=== PATIENT | female | born 1995 | race Caucasian/White ===

== ENCOUNTER 2016-12-19 23:46 | Emergency (ER) | payer MEDICAID ==
[~2016-12-19] VITALS: Ht 170.2 cm; Wt 77.1 kg
[~2016-12-19 23:46] MED LIST: ALBU0.63; WELLBUTRIN
[2016-12-20 00:26] LABS: Basophils # (auto) 0.1 uL; Basophils % (auto) 1.3 % (0.0-2.0); Eosinophils # (auto) 0.6 uL; Eosinophils % (auto) 5.7 % (0.0-7.0); Hematocrit 43.9 % (36.0-46.0); Hemoglobin 14.5 g/dL (12.2-16.2); Lymphocytes # (auto) 1.4 uL; Lymphocytes % (auto) 14.5 % (10.0-50.0); Mean Corpuscular Hemoglobin 29.1 pg (28.0-32.0); Mean Corpuscular Hgb Conc. 33.1 g/dL (32.0-36.0); Mean Corpuscular Volume 87.9 fL (80.0-100.0); Mean Platelet Volume 7.9 fL (7.4-10.4); Monocytes % (auto) 10.8 % (0.0-12.0); Neutrophils # (auto) 6.5 uL; Neutrophils % (auto) 67.7 % (37.0-80.0); Platelet Count (auto) 272 10^3/uL (140-450); White Blood Cell 9.6 10^3/uL (4.4-10.8)
[2016-12-20 00:55] LABS: Albumin 3.6 g/dL (3.4-5.0); Calcium 8.6 mg/dL (8.5-10.1); Potassium 3.6 mmol/L (3.5-5.1)
[2016-12-20 00:57] LABS: BUN/Creatinine Ratio 15.7
[2016-12-20 01:09] LABS: Bilirubin, Total 0.3 mg/dL (0.2-1.0); Total Protein 7.5 g/dL (6.4-8.2)
[2016-12-20] MEDS ORDERED: SODIUM CHLORIDE 0.9% 1,000 ML IV ONE (01:15)
[2016-12-20] MEDS ORDERED: IPRATROPIUM BROM 0.5 MG/2.5ML INH SOL NEB ONE (01:15)
[2016-12-20] MEDS ORDERED: ALBUTEROL SULF 2.5 MG/0.5ML(0.5%) NEB SOLN NEB ONE (01:15)
[2016-12-20] MEDS ORDERED: methylPREDNISolone SOD SUCC 125 MG/2 ML VL IV ONE (01:15)
[2016-12-20 04:28] VITALS: BP 111/62
== END 2016-12-20 04:41 | disposition home or self-care (01) ==
LOC: ER 23:46
DX: J45.901 Unspecified asthma with (acute) exacerbation (principal); F17.210 Nicotine dependence, cigarettes, uncomplicated; F15.10 Other stimulant abuse, uncomplicated; F12.10 Cannabis abuse, uncomplicated
CPT/HCPCS: 36415; 71010; 80053; 85025; 93005; 94640; 96361; 96374; 99285; J2930; J7030; 94644

== ENCOUNTER 2018-09-13 11:57 | Inpatient (IN) | payer MEDICAID ==
[~2018-09-13] VITALS: Ht 172.7 cm; Wt 108.2 kg
[2018-09-13 14:05] LABS: Basophils # (auto) 0.1 uL; Eosinophils # (auto) 0.1 uL; Red Cell Distribution Width 16.1 % (11.8-14.3)
[2018-09-13 14:07] LABS: Basophils % (auto) 0.6 % (0.0-2.0); Eosinophils % (auto) 0.8 % (0.0-7.0); Hemoglobin 15.2 g/dL (12.2-16.2); Lymphocytes # (auto) 1.3 uL; Lymphocytes % (auto) 8.6 % (10.0-50.0); Mean Corpuscular Hemoglobin 27.4 pg (28.0-32.0); Mean Corpuscular Hgb Conc. 33.7 g/dL (32.0-36.0); Mean Corpuscular Volume 81.3 fL (80.0-100.0); Monocytes # (auto) 0.7 uL; Monocytes % (auto) 4.3 % (0.0-12.0); Neutrophils # (auto) 13.5 uL; Neutrophils % (auto) 85.7 % (37.0-80.0); Platelet Count (auto) 390 10^3/uL (140-450); Red Blood Cells 5.54 10^6/uL (4.0-5.20); White Blood Cell 15.7 10^3/uL (4.4-10.8)
[2018-09-13 14:22] LABS: BUN/Creatinine Ratio 21.6; Calcium 9.2 mg/dL (8.5-10.1); Magnesium 1.8 mg/dL (1.6-2.6); Potassium 3.3 mmol/L (3.5-5.1)
[2018-09-13 14:25] LABS: Bilirubin, Total 0.4 mg/dL (0.2-1.0); Total Protein 8.7 g/dL (6.4-8.2)
[2018-09-13 14:28] LABS: Urine Amorphous Crystal FEW /hpf (None Seen); Urine Bacteria NONE SEEN /hpf (None Seen); Urine Blood Negative /uL (Negative); Urine Specific Gravity 1.022 (1.001-1.035); Urine WBC <1 /hpf (0 - 5)
[2018-09-13] MEDS ORDERED: SODIUM CHLORIDE 0.9% 1,000 ML IVB ONE (15:35)
[2018-09-13] MEDS ORDERED: ONDANSETRON HCL 4 MG/2 ML VIAL IV ONE (15:45)
[2018-09-13] MEDS ORDERED: KETOROLAC TROMETH 30 MG/ML 1ML VIAL IV ONE (15:45)
[2018-09-13] MEDS ORDERED: cefTRIAXone 1GM/50ML D5W 50 ML IV ONE (18:30)
[2018-09-13] MEDS ORDERED: TEMAZEPAM 15 MG CAP PO PRN (18:30)
[2018-09-13] MEDS ORDERED: NITROGLYCERIN 0.4 MG SL TAB SL PRN (18:30)
[2018-09-13] MEDS ORDERED: PROMETHAZINE HCL 25 MG/ML 1ML IV PRN (18:30)
[2018-09-13] MEDS ORDERED: ACETAMINOPHEN 500 MG TAB PO PRN (18:30)
[2018-09-13] MEDS ORDERED: MORPHINE SULFATE 4 MG/ML SYR/VIAL IV PRN ×2 (18:30)
[2018-09-13] MEDS ORDERED: traMADol HCL 50 MG TAB PO PRN (18:30)
[2018-09-13] MEDS ORDERED: LORazepam 0.5 MG TAB PO PRN (18:30)
[2018-09-13] MEDS ORDERED: ALBUTEROL SULF 2.5 MG/0.5ML(0.5%) NEB SOLN NEB PRN (19:45)
[2018-09-13] MEDS ORDERED: OSELTAMIVIR 75 MG CAP PO ONE (19:45)
[2018-09-13] MEDS: methylPREDNISolone SOD SUCC 40 MG/ML VL IV SCH (20:21)
[2018-09-13] MEDS: FAMOTIDINE (10MG/ML) 2ML VL IV SCH (20:22)
[2018-09-13] MEDS: metroNIDAZOLE 500MG/100ML 100 ML IV SCH (20:22)
[2018-09-13] MEDS ORDERED: OSELTAMIVIR 75 MG CAP PO SCH (22:00)
[2018-09-13] MEDS: SODIUM CHLORIDE 0.9% 1,000 ML IV SCH (22:00)
[2018-09-14] VITALS: BP 131/87
--- NOTE | 2018-09-14 | NUR ---
Telemetry admit from ER MALGORZATA MARTINEZ admitted to Telemetry unit after SBAR received. Patient oriented to Vivian Robins, primary RN, unit, room, bed, and unit policies regarding patient care and visiting hours. Patient now on continuous telemetry monitoring, tele box #20 and telemetry reading on arrival to unit is NSR @99BPM. Patient weighed by bed scale and encouraged to call if they need something. All questions and concerns addressed, patient verbalized understanding. Note: Patient is awake and alert x4, ambulating independently. Right EJ noted, sight is benign, saline flushed.
[2018-09-14] MEDS: ALBUTEROL SULF 2.5 MG/0.5ML(0.5%) NEB SOLN NEB SCH ×4 (00:29→18:37)
[2018-09-14] MEDS: metroNIDAZOLE 500MG/100ML 100 ML IV SCH ×4 (00:30→18:04)
[2018-09-14] MEDS ORDERED: ALBUAER3 IN (00:31)
[2018-09-14] MEDS: SODIUM CHLORIDE 0.9% 1,000 ML IV SCH ×2 (04:22→14:22)
[2018-09-14 05:11] VITALS: BP 124/56
[2018-09-14] MEDS ORDERED: INFLUENZA QUAD 2018-2019 0.5 ML SYRG IM ONE (06:00)
[2018-09-14] MEDS: FAMOTIDINE (10MG/ML) 2ML VL IV SCH ×2 (06:09→18:04)
[2018-09-14] MEDS: methylPREDNISolone SOD SUCC 40 MG/ML VL IV SCH ×2 (07:08→21:18)
[2018-09-14 07:33] LABS: Basophils # (auto) 0 uL; Basophils % (auto) 0.2 % (0.0-2.0); Eosinophils # (auto) 0 uL; Hematocrit 39.7 % (36.0-46.0); Hemoglobin 13.3 g/dL (12.2-16.2); Lymphocytes # (auto) 1.1 uL; Lymphocytes % (auto) 6.1 % (10.0-50.0); Mean Corpuscular Hemoglobin 27.6 pg (28.0-32.0); Mean Corpuscular Hgb Conc. 33.5 g/dL (32.0-36.0); Mean Corpuscular Volume 82.4 fL (80.0-100.0); Monocytes # (auto) 0.6 uL; Monocytes % (auto) 3.5 % (0.0-12.0); Neutrophils # (auto) 16.5 uL; Neutrophils % (auto) 90.2 % (37.0-80.0); Platelet Count (auto) 376 10^3/uL (140-450); Red Blood Cells 4.82 10^6/uL (4.0-5.20); Red Cell Distribution Width 16.1 % (11.8-14.3); White Blood Cell 18.3 10^3/uL (4.4-10.8)
[2018-09-14 07:35] LABS: INR 0.99 (0.9-1.15); Partial Thromboplastin Time 29.6 sec (23.78-33.04); Prothrombin Time 10.6 sec (9.27-12.13)
[2018-09-14 07:44] LABS: Potassium 3.9 mmol/L (3.5-5.1)
--- NOTE | 2018-09-14 07:45 | NUR ---
Opening Shift Note Assumed care of patient, awake and alert. No S/S of distress/SOB or pain. Instructed on POC and to call for assistance PRN, will continue to monitor for changes Q1hr and PRN.
[2018-09-14 07:50] LABS: Albumin 2.9 g/dL (3.4-5.0); BUN/Creatinine Ratio 22.4; Bilirubin, Total 0.3 mg/dL (0.2-1.0); Calcium 7.9 mg/dL (8.5-10.1); Total Protein 6.7 g/dL (6.4-8.2)
[2018-09-14 08:00] VITALS: BP 128/62
[2018-09-14] MEDS: cefTRIAXone 1GM/50ML D5W 50 ML IV SCH (08:54)
--- NOTE | 2018-09-14 10:20 | NUR ---
Patient signed AMA to spoke MALGORZATA MARTINEZ states they want to leave the floor Against Medical Advice (AMA) to go outside and smoke. Patient encouraged to stay on floor and not smoke. Dr notified of patient's wishes. Patient advised of the risks and benefits of leaving AMA. Patient verbalized understanding and signed required AMA form.
--- NOTE | 2018-09-14 18:56 | NUR ---
end of shift note: Patient comfortably resting in bed, no s/s of distress/SOB noted or stated. Bed at lowest position and call light within reach. Will endorse care to NOC RN .
--- NOTE | 2018-09-14 19:45 | NUR ---
Patient going downstairs to smoke Patient with signed AMA in chart, states they want to leave the floor Against Medical Advice (AMA) to go outside and smoke. Patient encouraged to stay on floor and not smoke, patient refusing Nicotine patch. Patient advised of the risks and benefits of leaving AMA. Patient verbalized understanding and signed required AMA form is in the chart.
[2018-09-14 22:00] VITALS: BP 151/77
[2018-09-15] MEDS: SODIUM CHLORIDE 0.9% 1,000 ML IV SCH (00:22)
[2018-09-15] MEDS: ALBUTEROL SULF 2.5 MG/0.5ML(0.5%) NEB SOLN NEB SCH ×3 (00:33→12:00)
[2018-09-15] MEDS: metroNIDAZOLE 500MG/100ML 100 ML IV SCH ×2 (00:48→06:23)
[2018-09-15 05:00] VITALS: BP 109/60
[2018-09-15] MEDS: FAMOTIDINE (10MG/ML) 2ML VL IV SCH (06:23)
[2018-09-15] MEDS: methylPREDNISolone SOD SUCC 40 MG/ML VL IV SCH (06:24)
--- NOTE | 2018-09-15 06:24 | NUR ---
RESPIRATORY PAGED PATIENT REPORTING SHORTNESS OF BREATH, STATES "I CANT BREATH". PATIENT SITTING UP IN BED, AUDIBLE WHEEZING NOTED. PATIENT O2 SAT 89% ON ROOM AIR, RR 22. PATIENT PLACED ON OXYGEN AT 3LNC. 02 SATURATION MAINTAINING AT 93% VIA NC. WILL CONTINUE TO MONITOR AND AWAIT RT.
[2018-09-15 07:30] LABS: Basophils # (auto) 0.1 uL; Basophils % (auto) 0.6 % (0.0-2.0); Eosinophils # (auto) 0 uL; Hematocrit 36.3 % (36.0-46.0); Lymphocytes # (auto) 1.8 uL; Lymphocytes % (auto) 10.7 % (10.0-50.0); Mean Corpuscular Hemoglobin 27.3 pg (28.0-32.0); Mean Corpuscular Volume 82.6 fL (80.0-100.0); Monocytes # (auto) 0.8 uL; Monocytes % (auto) 4.9 % (0.0-12.0); Neutrophils # (auto) 14.3 uL; Neutrophils % (auto) 83.8 % (37.0-80.0); Platelet Count (auto) 318 10^3/uL (140-450); Red Blood Cells 4.39 10^6/uL (4.0-5.20); Red Cell Distribution Width 16.6 % (11.8-14.3)
--- NOTE | 2018-09-15 07:30 | NUR ---
Opening Shift Note Assumed care of patient, awake and alert. No S/S of distress/SOB or pain. Instructed on POC and to call for assist PRN, will continue to monitor for changes Q1hr and PRN.
[2018-09-15 08:00] LABS: Albumin 2.7 g/dL (3.4-5.0); Calcium 7.8 mg/dL (8.5-10.1); Potassium 3.9 mmol/L (3.5-5.1)
[2018-09-15 08:04] LABS: BUN/Creatinine Ratio 17.5; Bilirubin, Total 0.2 mg/dL (0.2-1.0); Total Protein 6.2 g/dL (6.4-8.2)
--- NOTE | 2018-09-15 08:30 | NUR ---
Patient removed tele box. Refuses to wear it.
[2018-09-15] MEDS: cefTRIAXone 1GM/50ML D5W 50 ML IV SCH (09:00)
--- NOTE | 2018-09-15 09:00 | NUR ---
IV removal Patient requests Iv to be removed. IV DC'd with clean sterile technique, catheter fully intact. Pressure dressing applied to site. Patient tolerated well.
--- NOTE | 2018-09-15 09:45 | NUR ---
AMA Note MALGORZATA MARTINEZ states they want to leave the hospital Against Medical Advice (AMA). Patient encouraged to stay for further treatment/stabilization. Margot Miranda MD notified of patient's wishes. Patient advised of the risks and benefits of leaving AMA. Patient verbalized understanding. Patient encouraged to return to the ER if symptoms do not improve or worsen.
== END 2018-09-15 09:45 | disposition left against medical advice (07) ==
LOC: ER 11:57 → EDBD 11:57 → TELE 18:26 → TELE-EAST 23:55
PROVIDERS: ADMIT Internal Medicine; ATTEND Internal Medicine
DX: K80.00 Calculus of gallbladder with acute cholecystitis without obstruction (principal); E44.0 Moderate protein-calorie malnutrition; J45.901 Unspecified asthma with (acute) exacerbation; E66.01 Morbid (severe) obesity due to excess calories; K21.9 Gastro-esophageal reflux disease without esophagitis; F17.210 Nicotine dependence, cigarettes, uncomplicated; Z82.49 Family history of ischemic heart disease and other diseases of the circulatory system; Z82.5 Family history of asthma and other chronic lower respiratory diseases; Z83.3 Family history of diabetes mellitus; Z68.36 Body mass index [BMI] 36.0-36.9, adult
CPT/HCPCS: 36415; 71045; 74176; 76705; 80053; 81001; 82150; 83690; 83735; 84702; 85025; 85610; 85730; 86850; 86900; 86901; 87804; 90674; 93005; 94640; 94761; 96361; 96365; 96375; G0378; J0696; J1885; J2405; J3490

== ENCOUNTER 2018-10-14 10:48 | Inpatient (IN) | payer MEDICAID ==
[~2018-10-14] VITALS: Ht 170.2 cm; Wt 90.0 kg
[~2018-10-14 10:48] MED LIST changes: -ALBU0.63; +ALBUAER3 IN; -WELLBUTRIN
[2018-10-14] MEDS ORDERED: SODIUM CHLORIDE 0.9% 500 ML IVB ONE (11:21)
[2018-10-14] MEDS ORDERED: PANTOPRAZOLE 40 MG/10 ML VIAL IV STA (11:21)
[2018-10-14 11:28] LABS: Basophils # (auto) 0.1 uL; Basophils % (auto) 0.3 % (0.0-2.0); Eosinophils # (auto) 0 uL; Eosinophils % (auto) 0.3 % (0.0-7.0); Lymphocytes # (auto) 1.4 uL; Lymphocytes % (auto) 7.3 % (10.0-50.0); Mean Corpuscular Hemoglobin 26.9 pg (28.0-32.0); Mean Corpuscular Hgb Conc. 32.5 g/dL (32.0-36.0); Mean Corpuscular Volume 82.7 fL (80.0-100.0); Monocytes % (auto) 11.1 % (0.0-12.0); Neutrophils # (auto) 14.9 uL; Platelet Count (auto) 401 10^3/uL (140-450); Red Cell Distribution Width 15.2 % (11.8-14.3); White Blood Cell 18.4 10^3/uL (4.4-10.8)
[2018-10-14] MEDS ORDERED: ONDANSETRON HCL 4 MG/2 ML VIAL IV ONE (11:30)
[2018-10-14] MEDS ORDERED: MORPHINE SULFATE 4 MG/ML SYR/VIAL IV ONE (11:30)
[2018-10-14 11:46] LABS: Albumin 3.1 g/dL (3.4-5.0); Calcium 8.8 mg/dL (8.5-10.1); Potassium 3.6 mmol/L (3.5-5.1)
[2018-10-14 11:49] LABS: BUN/Creatinine Ratio 10.7; Bilirubin, Total 0.5 mg/dL (0.2-1.0); Total Protein 7.9 g/dL (6.4-8.2)
[2018-10-14] MEDS ORDERED: MORPHINE SULF INJ 2 MG/ML SYRINGE 1ML IV PRN (14:15)
[2018-10-14] MEDS ORDERED: ONDANSETRON HCL 4 MG/2 ML VIAL IV PRN (14:15)
[2018-10-14] MEDS ORDERED: MORPHINE SULFATE 4 MG/ML SYR/VIAL IV PRN (14:15)
[2018-10-14] MEDS ORDERED: SODIUM CHLORIDE 0.9% 2,000 ML IV ONE (14:15)
[2018-10-14] MEDS ORDERED: NITROGLYCERIN 0.4 MG SL TAB SL PRN (14:15)
[2018-10-14] MEDS ORDERED: IPRATROPIUM BROM 0.5 MG/2.5ML INH SOL NEB PRN (14:15)
[2018-10-14] MEDS ORDERED: ALBUTEROL SULF 2.5 MG/0.5ML(0.5%) NEB SOLN NEB PRN (14:15)
[2018-10-14 15:09] LABS: INR 0.99 (0.9-1.15); Partial Thromboplastin Time 33.4 sec (23.78-33.04); Prothrombin Time 10.6 sec (9.27-12.13)
[2018-10-14 16:25] VITALS: BP 111/75
--- NOTE | 2018-10-14 16:25 | NUR ---
Admit MALGORZATA MARTINEZ admitted to medsurg unit after SBAR received. Patient oriented to PATRICIA KENT, RN primary RN, unit, room, bed, and unit policies regarding patient care and visiting hours. Patient weighed by bedscale and encouraged to call if they need something. All questions and concerns addressed, patient verbalized understanding.
[2018-10-14 17:06] VITALS: BP 111/75
--- NOTE | 2018-10-14 18:35 | NUR ---
Paged Hospitalist Paged aviation safety officer hospitalist for PRN pain medication. Awaiting call back.
--- NOTE | 2018-10-14 18:58 | NUR ---
End of Shift Endorsed care to NOC nurse. Patient lying in bed, no signs of distress. Bed in lowest locked position, side rails up x,2 and call light within reach.
--- NOTE | 2018-10-14 19:35 | NUR ---
Opening Shift Note Assumed care of patient, awake and alert. No S/S of distress/SOB or pain. Instructed on POC. 1st of 2 bags of ns bolus just completed and 2nd just started. Will start scheduled IV abx which was due at 1800 and continue with IVF w/e-lytes as ordered. Will also attempt 2nd IV later as patient only has an EJ at this time. Hard stick per patient. Instructed to call for assist PRN, will continue to monitor for changes Q1hr and PRN.
[2018-10-14] MEDS: metroNIDAZOLE 500MG/100ML 100 ML IV SCH ×2 (20:07→23:58)
--- NOTE | 2018-10-14 20:19 | NUR ---
PATIENT SIGNED AMA TO SMOKE. ESCORTED BY ELEAZAR. INFORMED TO BE BACK W/IN 1/2 HR.
[2018-10-14 21:07] LABS: Urine Bacteria NONE SEEN /hpf (None Seen); Urine Blood Negative /uL (Negative); Urine Mucus FEW (None Seen); Urine Specific Gravity 1.022 (1.001-1.035); Urine WBC 2 /hpf (0 - 5)
[2018-10-14] MEDS: SOD CHL 0.45% WITH 20MEQ KCL 1,000 ML IV SCH (21:15)
[2018-10-14 21:16] LABS: Amphetamine Screen, Urine POSITIVE (NEGATIVE); Barbiturate Scree,Urine NEGATIVE (NEGATIVE); Benzodiazephine Screen, Urine NEGATIVE (NEGATIVE); Cannabinoid Screen, Urine NEGATIVE (NEGATIVE); Cocaine Screen, Urine NEGATIVE (NEGATIVE); Opiate Scree,Urine POSITIVE (NEGATIVE); Phencyclidine Screen, Urine NEGATIVE (NEGATIVE)
[2018-10-14 21:54] VITALS: BP 152/71
--- NOTE | 2018-10-14 22:16 | NUR ---
Respiratory note: PT SEEN AND ASSESSED FOR PRN MED NEB TX AT 2216. TX NOT INDICATED AT THIS TIME. PT IS CURRENTLY ASLEEP WITH NO SIGNS OF DISTRESS. HR 110 RR 18 POX 94% ON ROOM AIR.
[2018-10-14] MEDS: HYDROcodone-ACET 7.5/325MG TAB PO PRN (23:58)
[2018-10-15] MEDS ORDERED: InsuLIN REG 1unit/0.01ml Soln (100units/ml) ONE (01:17)
[2018-10-15 02:43] VITALS: BP 152/71
[2018-10-15 05:34] VITALS: BP 113/88
[2018-10-15 06:04] LABS: Basophils # (auto) 0 uL; Basophils % (auto) 0.3 % (0.0-2.0); Eosinophils # (auto) 0.1 uL; Eosinophils % (auto) 1.1 % (0.0-7.0); Hematocrit 37.5 % (36.0-46.0); Hemoglobin 12.3 g/dL (12.2-16.2); Lymphocytes # (auto) 2.2 uL; Lymphocytes % (auto) 18.2 % (10.0-50.0); Mean Corpuscular Hemoglobin 27.8 pg (28.0-32.0); Mean Corpuscular Hgb Conc. 32.9 g/dL (32.0-36.0); Mean Corpuscular Volume 84.6 fL (80.0-100.0); Monocytes # (auto) 1.5 uL; Monocytes % (auto) 12.4 % (0.0-12.0); Neutrophils # (auto) 8.2 uL; Platelet Count (auto) 312 10^3/uL (140-450); Red Blood Cells 4.43 10^6/uL (4.0-5.20); Red Cell Distribution Width 15.4 % (11.8-14.3)
[2018-10-15] MEDS: metroNIDAZOLE 500MG/100ML 100 ML IV SCH ×4 (06:05→23:41)
[2018-10-15] MEDS: SOD CHL 0.45% WITH 20MEQ KCL 1,000 ML IV SCH ×3 (06:05→20:36)
[2018-10-15] MEDS: HYDROcodone-ACET 7.5/325MG TAB PO PRN ×3 (06:05→23:47)
[2018-10-15 06:26] LABS: Potassium 3.7 mmol/L (3.5-5.1)
--- NOTE | 2018-10-15 06:37 | NUR ---
SHIFT END PATIENT RESTING IN BED W/NO S/S OF DISTRESS NOTED. NOW COMFORTABLE AFTER MEDICATING FOR PAIN AT 0605. FLUIDS RUNNING, ALONG W/IV ANTIBIOTICS, VIA EXTERNAL JUGULAR ACCESS. PATIENT REMAINS NPO SINCE MIDNIGHT EXCEPT FOR A SIP OF WATER W/PAIN MED. CONSENTS SIGNED FOR PROCEDURE AND CHECKLIST COMPLETE. BED IN LOWEST LOCKED POSITION W/CALL SEN W/IN REACH. ENDORSING CARE TO DAY RN.
[2018-10-15 06:46] LABS: Albumin 2.4 g/dL (3.4-5.0); BUN/Creatinine Ratio 9.9; Bilirubin, Total 0.3 mg/dL (0.2-1.0); Calcium 8.3 mg/dL (8.5-10.1); Magnesium 1.9 mg/dL (1.6-2.6); Total Protein 6.4 g/dL (6.4-8.2)
--- NOTE | 2018-10-15 07:10 | NUR ---
Open Shift Note Received report on patient, asleep in bed but easily awoken when entered. Patient shows no signs of distress at this time. Discussed POC with patient and plans for surgery, and to remain NPO. Patient verbalized understanding. Bed in lowest locked position, side rails up x2, and call light within reach. Will continue to monitor.
--- NOTE | 2018-10-15 08:16 | NUR ---
Respiratory note: ASSESSED PT FOR PRN TX. PT WAS ASLEEP NO RESP DISTRESS NOTED. HR 87, RR 16, SPO2 93% ON ROOM AIR. BS ARE CLEAR AND DIMINISHED. PT KNOWS TO HAVE RT PAGED IF TX WAS NEEDED.
[2018-10-15 09:00] VITALS: BP 105/63
[2018-10-15] MEDS: LEVOFLOXACIN 750MG 150 ML IV SCH (09:22)
[2018-10-15] MEDS ORDERED: LIDOCAINE 2% (LOCAL ANESTH.) PF 5ml SDV ONE (11:32)
[2018-10-15] MEDS ORDERED: MIDAZOLAM HCL 1MG/1ML-2 ML VIAL ONE (11:32)
[2018-10-15] MEDS ORDERED: ROCURONIUM 10MG/ML 10ML VIAL IV ONE (11:33)
[2018-10-15] MEDS ORDERED: PROPOFOL 10 MG/ML 20 ML IV ONE (11:34)
--- NOTE | 2018-10-15 12:00 | NUR ---
Patient Down to Pre Op Patient taken down to pre op via bed. No distress noted.
[2018-10-15] MEDS ORDERED: SUCCINYLCHOLINE CHLORIDE 20 MG/ML 10ML VIAL IV ONE (12:26)
[2018-10-15] MEDS ORDERED: fentaNYL CITRATE 100 MCG/2 ML VL ONE (12:44)
[2018-10-15] MEDS ORDERED: POVIDONE IODINE 10 % TOPICAL OINT 30GM TOP ONE (12:49)
[2018-10-15 13:00] VITALS: BP 113/59
[2018-10-15] MEDS ORDERED: HYDROmorphone HCL 2 MG/ML VL IV PRN (13:00)
[2018-10-15] MEDS ORDERED: NALOXONE HCL 0.4 MG/ML VIAL IV PRN (13:00)
[2018-10-15] MEDS ORDERED: ONDANSETRON HCL 4 MG/2 ML VIAL IV ONE (13:00)
[2018-10-15] MEDS ORDERED: GLYCOPYRROLATE 0.2 MG/ML 1ML VIAL ONE (13:31)
[2018-10-15] MEDS ORDERED: NEOSTIGMINE 1 MG/ML INJ (10mg/10ML VIAL) ONE (13:31)
[2018-10-15] MEDS: HYDROmorphone HCL 2 MG/ML VL IV PRN ×2 (14:03→14:13)
--- NOTE | 2018-10-15 14:45 | NUR ---
Vitals Post Op BP 121/75 HR 76 RR 19 O2 96% on room air. Will continue to monitor.
--- NOTE | 2018-10-15 14:45 | NUR ---
Patient Retuned Patient back from jed isaac. Patient has 3 dressings, dry and intact with residue from Betadine. Patient states feeling nauseous, discussed PRN medication and techniques to decrease nausea. Fiance at bedside. Bed in lowest locked position, side rails up x2, and call light within reach. Will continue to monitor.
[2018-10-15 17:00] VITALS: BP 97/45
--- NOTE | 2018-10-15 18:30 | NUR ---
Paged Respiratory Paged respiratory for breathing treatment. Patient has wheezes and verbalizes needing treatment.
--- NOTE | 2018-10-15 18:45 | NUR ---
Respiratory at Bedside Respiratory at bedside performing breathing treatment.
--- NOTE | 2018-10-15 18:53 | NUR ---
End of Shift Endorsed care to NOC nurse. Patient shows no signs of distress at this time. Bed in lowest locked position, side rails up x2, and call light within reach. Respiratory still at bedside.
--- NOTE | 2018-10-15 20:40 | NUR ---
Opening Shift Note Assumed care of patient, in bed w/eyes closed. No S/S of distress/SOB or pain. Respirations even and unlabored. Bed in lowest locked position w/call ferreira w/in reach. Will continue to monitor for changes Q1hr and PRN.
[2018-10-15 21:50] VITALS: BP 136/66
[2018-10-16 05:01] VITALS: BP 127/67
[2018-10-16] MEDS: metroNIDAZOLE 500MG/100ML 100 ML IV SCH ×4 (05:50→23:42)
[2018-10-16] MEDS: HYDROcodone-ACET 7.5/325MG TAB PO PRN ×3 (05:50→19:30)
[2018-10-16] MEDS: SOD CHL 0.45% WITH 20MEQ KCL 1,000 ML IV SCH ×3 (05:51→23:46)
--- NOTE | 2018-10-16 06:42 | NUR ---
SHIFT END PATIENT RESTING IN BED W/NO S/S OF DISTRESS OR SOB. BED IN LOWEST LOCKED POSITION W/CALL SEN W/IN REACH. ENDORSING CARE TO DAY RN.
--- NOTE | 2018-10-16 07:35 | NUR ---
Assumed care of pt, awake and alert, no s&s of distress/sob or pain noted, instructed on poc and to call for assist prn, will continue to monitor for changes q1h and prn.
[2018-10-16 08:00] VITALS: BP 123/69
--- NOTE | 2018-10-16 08:04 | NUR ---
PT. ASSESSED FOR PRN. MED NEB. TX. , NO RESP. DISTRESS OR SOB NOTED. PT. IS AWAKE AND ALERT. BS. ARE CLEAR, HR=88,RR=18,PL39=327% ON RA., PT. STATES TX. NOT NEEDED AT THIS TIME. PT. IS AWARE SHE MAY CALL IF NEEDED. TX. NOT GIVEN AT THIS TIME.
[2018-10-16 08:27] LABS: Basophils # (auto) 0.1 uL; Basophils % (auto) 0.5 % (0.0-2.0); Eosinophils # (auto) 0.2 uL; Eosinophils % (auto) 1.9 % (0.0-7.0); Hematocrit 38.9 % (36.0-46.0); Hemoglobin 12.6 g/dL (12.2-16.2); Lymphocytes # (auto) 1.5 uL; Lymphocytes % (auto) 14.9 % (10.0-50.0); Mean Corpuscular Hemoglobin 27.3 pg (28.0-32.0); Mean Corpuscular Hgb Conc. 32.5 g/dL (32.0-36.0); Mean Corpuscular Volume 83.9 fL (80.0-100.0); Monocytes # (auto) 0.7 uL; Monocytes % (auto) 7.5 % (0.0-12.0); Neutrophils # (auto) 7.4 uL; Neutrophils % (auto) 75.2 % (37.0-80.0); Platelet Count (auto) 352 10^3/uL (140-450); Red Blood Cells 4.63 10^6/uL (4.0-5.20); Red Cell Distribution Width 15.1 % (11.8-14.3); White Blood Cell 9.9 10^3/uL (4.4-10.8)
[2018-10-16 08:41] LABS: Albumin 2.5 g/dL (3.4-5.0); Calcium 8.3 mg/dL (8.5-10.1); Potassium 4.1 mmol/L (3.5-5.1)
[2018-10-16 08:44] LABS: Bilirubin, Total 0.4 mg/dL (0.2-1.0)
[2018-10-16] MEDS: LEVOFLOXACIN 750MG 150 ML IV SCH ×2 (09:17→09:42)
--- NOTE | 2018-10-16 09:45 | NUR ---
Informed Dr. Immanuel Dubon (covering for Dr. Nobles) in person and in to see pt re pt wants to go home and wants her diet advanced, orders received. Addendum: 10/16/18 at 0954 by George Ling RN correction: Dr. Anna Dubon
--- NOTE | 2018-10-16 12:13 | NUR ---
Pt awake and alert, no s&s of distress/sob or pain noted, will continue to monitor for changes q1h and prn.
[2018-10-16 13:02] VITALS: BP 116/71
--- NOTE | 2018-10-16 15:42 | NUR ---
Pt awake and alert, no s&s of distress/sob or pain noted, will continue to monitor for changes q1h and prn.
[2018-10-16 16:51] VITALS: BP 99/53
--- NOTE | 2018-10-16 20:54 | NUR ---
Respiratory note: ASSESSMENT FOR PRN MED NEB TX. NO RESPIRATORY DISTRESS NOTED, HR 91, SPO2 97% ON ROOM, RR 19, BS CLEAR/DIMINISHED. PT AWARE TO HAVE RN PAGE RT IF MED NEB TX IS NEEDED.
[2018-10-16 22:00] VITALS: BP 129/69
[2018-10-17] MEDS: HYDROcodone-ACET 7.5/325MG TAB PO PRN ×2 (01:50→09:17)
[2018-10-17] MEDS: metroNIDAZOLE 500MG/100ML 100 ML IV SCH (06:10)
[2018-10-17 06:32] LABS: Basophils # (auto) 0 uL; Basophils % (auto) 0.6 % (0.0-2.0); Eosinophils # (auto) 0.6 uL; Eosinophils % (auto) 6.4 % (0.0-7.0); Hematocrit 39.8 % (36.0-46.0); Lymphocytes # (auto) 2.1 uL; Lymphocytes % (auto) 22.7 % (10.0-50.0); Mean Corpuscular Hemoglobin 27.8 pg (28.0-32.0); Mean Corpuscular Hgb Conc. 32.8 g/dL (32.0-36.0); Mean Corpuscular Volume 84.7 fL (80.0-100.0); Monocytes # (auto) 0.6 uL; Monocytes % (auto) 6.7 % (0.0-12.0); Neutrophils # (auto) 5.8 uL; Neutrophils % (auto) 63.6 % (37.0-80.0); Nucleated Red Blood Cells % 0.1 %; Platelet Count (auto) 378 10^3/uL (140-450); Red Blood Cells 4.69 10^6/uL (4.0-5.20); Red Cell Distribution Width 15.8 % (11.8-14.3); White Blood Cell 9.1 10^3/uL (4.4-10.8)
--- NOTE | 2018-10-17 06:42 | NUR ---
SHIFT END PATIENT RESTING IN BED. NO S/S OF DISTRESS NOTED. RESPIRATIONS EVEN AND UNLABORED. BED IN LOWEST LOCKED POSITION W/2 SIDE RAILS UP AND CALL SEN W/IN REACH. ENDORSING CARE TO DAY RN.
[2018-10-17 06:50] LABS: Calcium 8.1 mg/dL (8.5-10.1); Chloride 106 mmol/L (98-107); Potassium 3.8 mmol/L (3.5-5.1); Sodium 138 mmol/L (136-145)
[2018-10-17 06:53] LABS: Albumin 2.4 g/dL (3.4-5.0); Anion Gap 8 (5-15); BUN/Creatinine Ratio 11.8; Blood Urea Nitrogen 8 mg/dL (7-18); Carbon Dioxide 24 mmol/L (21-32); GFR African American 137 mL/min; GFR Non-African American 113 mL/min; Glucose 104 mg/dL (74-106)
[2018-10-17 06:56] LABS: Alanine Aminotransferase 50 U/L (13-56); Alkaline Phosphatase 147 U/L (45-117); Aspartate Aminotransferase 42 U/L (15-37); Bilirubin, Total 0.1 mg/dL (0.2-1.0); Total Protein 7.2 g/dL (6.4-8.2)
--- NOTE | 2018-10-17 08:00 | NUR ---
Opening Shift Note Assumed care of patient, awake and alert. No S/S of distress/SOB 6/10 abdominal incisions pain. Instructed on POC and to call for assist PRN, will continue to monitor for changes Q1hr and PRN.
[2018-10-17 08:34] VITALS: BP 98/55
[2018-10-17] MEDS: LEVOFLOXACIN 750MG 150 ML IV SCH (09:17)
--- NOTE | 2018-10-17 11:00 | NUR ---
Patient is becoming upset asking about when the MD's will do the rounds and wanted to be discharged today. Explained to the patient that the Dr. Bernal will do the rounds today as well as Dr. Dubon and should wait for them. Explained the risks of leaving AMA. Patient verbalized understanding and will wait for the MD's.
[2018-10-17 12:22] VITALS: BP 133/81
--- NOTE | 2018-10-17 14:00 | NUR ---
Dr. Dubon at bedside. Patient is advised. Instructed to to follow up with PMD and Dr. Marvin in 2 weeks for blood work ups due to increasing level of liver enzymes. May be discharged from surgical standpoint. Patient verbalized understanding.
[2018-10-17 14:21] VITALS: BP 133/81
--- NOTE | 2018-10-17 15:30 | NUR ---
Discharge instructions given as ordered. Encourage to follow up with PMD Dr. Davis in 1-2 weeks #[phone] [place] [address] [place], [place] as instructed. Follow up with Dr. Marvin on 10/28/18 at 1030am #[phone] [place] [id number] [facility] [address] [place], [place]. All questions and concerns addressed. Patient verbalized understanding. Medication reconciliation form completed and copy given to patient. IV removed with catheter intact, pressure dressing applied. Patient ambulated with all personal belongings, accompanied by staff and family member. No distress noted at time of departure.
== END 2018-10-17 17:22 | disposition home or self-care (01) | DRG 710 ==
LOC: ER 10:53 → OVERFLOW 14:19 → WEST WING 17:55
PROVIDERS: ADMIT Nurse Practitioner Acute Care; ATTEND Internal Medicine
PROC: 0FT44ZZ Resection of Gallbladder, Percutaneous Endoscopic Approach (ICD-10-PCS; principal; 2018-10-15 12:32)
DX: A41.9 Sepsis, unspecified organism (principal); K80.00 Calculus of gallbladder with acute cholecystitis without obstruction; E44.1 Mild protein-calorie malnutrition; J45.909 Unspecified asthma, uncomplicated; E66.9 Obesity, unspecified; F12.90 Cannabis use, unspecified, uncomplicated; A49.02 Methicillin resistant Staphylococcus aureus infection, unspecified site; Z71.6 Tobacco abuse counseling; Z68.31 Body mass index [BMI] 31.0-31.9, adult; Z90.49 Acquired absence of other specified parts of digestive tract; Z82.49 Family history of ischemic heart disease and other diseases of the circulatory system; Z82.5 Family history of asthma and other chronic lower respiratory diseases; Z83.3 Family history of diabetes mellitus; Z91.19 Patient's noncompliance with other medical treatment and regimen
CPT/HCPCS: 36415; 71045; 74176; 76705; 80053; 80061; 80307; 81001; 82150; 83690; 83735; 84702; 85025; 85610; 85730; 86850; 86900; 86901; 87081; 94640; 94761; 96374; 96375; A6257; C9113; G0378; J0330; J1815; J1956; J2001; J2250; J2405; J2704; J3490

== ENCOUNTER 2019-03-29 21:30 | Inpatient (IN) | payer MEDICAID ==
[~2019-03-29] VITALS: Ht 170.2 cm; Wt 90.0 kg
[2019-03-29] MEDS ORDERED: ALBUTEROL SULF 2.5 MG/0.5ML(0.5%) NEB SOLN HHN STA (21:46)
[2019-03-29] MEDS ORDERED: IPRATROPIUM BROM 0.5 MG/2.5ML INH SOL NEB ONE (22:00)
[2019-03-29] MEDS ORDERED: SODIUM CHLORIDE 0.9% 1,000 ML IV ONE (22:00)
[2019-03-29] MEDS ORDERED: ALBUTEROL SULF 2.5 MG/0.5ML(0.5%) NEB SOLN HHN ONE (22:00)
[2019-03-29] MEDS ORDERED: IPRATROPIUM BROM 0.5 MG/2.5ML INH SOL HHN ONE (22:00)
[2019-03-29] MEDS ORDERED: TERBUTALINE SULFATE 1 MG/ML 1ML VIAL SC ONE (22:00)
[2019-03-29] MEDS ORDERED: methylPREDNISolone SOD SUCC 125 MG/2 ML VL IV ONE (22:00)
[2019-03-29 22:05] LABS: Basophils # (auto) 0.1 uL; Basophils % (auto) 0.6 % (0.0-2.0); Eosinophils # (auto) 0.4 uL; Eosinophils % (auto) 2.5 % (0.0-7.0); Hemoglobin 15.3 g/dL (12.2-16.2); Lymphocytes # (auto) 1.4 uL; Lymphocytes % (auto) 8.4 % (10.0-50.0); Mean Corpuscular Hemoglobin 28.7 pg (28.0-32.0); Mean Corpuscular Hgb Conc. 33.2 g/dL (32.0-36.0); Mean Corpuscular Volume 86.4 fL (80.0-100.0); Monocytes # (auto) 0.9 uL; Monocytes % (auto) 5.6 % (0.0-12.0); Neutrophils # (auto) 13.7 uL; Neutrophils % (auto) 82.9 % (37.0-80.0); Nucleated Red Blood Cells % 0.1 %; Platelet Count (auto) 299 10^3/uL (140-450); Red Blood Cells 5.32 10^6/uL (4.0-5.20); White Blood Cell 16.5 10^3/uL (4.4-10.8)
[2019-03-29 22:24] LABS: Albumin 3.8 g/dL (3.4-5.0); INR < 0.93 (0.9-1.15); Partial Thromboplastin Time 25.9 sec (23.64-32.05); Potassium 4.1 mmol/L (3.5-5.1)
[2019-03-29] MEDS: MAGNESIUM SULFATE 1GM/100ML 100 ML IV SCH ×2 (22:24→23:24)
[2019-03-29 22:27] LABS: Bilirubin, Total 0.2 mg/dL (0.2-1.0); Total Protein 8.1 g/dL (6.4-8.2)
[2019-03-30] MEDS ORDERED: ALBUTEROL SULF 2.5 MG/0.5ML(0.5%) NEB SOLN NEB ONE ×3 (00:45→04:45)
[2019-03-30] MEDS ORDERED: IPRATROPIUM BROM 0.5 MG/2.5ML INH SOL NEB ONE ×3 (00:45→04:45)
[2019-03-30] MEDS ORDERED: ACETAMINOPHEN 500 MG TAB PO PRN (03:30)
[2019-03-30 04:23] VITALS: BP 114/64
[2019-03-30] MEDS ORDERED: ALBUTEROL SULF 2.5 MG/0.5ML(0.5%) NEB SOLN ONE (04:29)
[2019-03-30] MEDS ORDERED: IPRATROPIUM BROM 0.5 MG/2.5ML INH SOL ONE (04:29)
[2019-03-30] MEDS: methylPREDNISolone SOD SUCC 40 MG/ML VL IV SCH ×2 (06:21→14:00)
[2019-03-30] MEDS: ALBUTEROL SULF 2.5 MG/0.5ML(0.5%) NEB SOLN NEB SCH ×4 (06:37→18:38)
[2019-03-30] MEDS: IPRATROPIUM BROM 0.5 MG/2.5ML INH SOL NEB SCH ×4 (06:38→18:37)
[2019-03-30 07:48] LABS: Basophils # (auto) 0 uL; Basophils % (auto) 0.2 % (0.0-2.0); Eosinophils # (auto) 0 uL; Lymphocytes # (auto) 0.4 uL; Lymphocytes % (auto) 2.8 % (10.0-50.0); Mean Corpuscular Hemoglobin 28.3 pg (28.0-32.0); Mean Corpuscular Hgb Conc. 32.5 g/dL (32.0-36.0); Mean Corpuscular Volume 87.1 fL (80.0-100.0); Monocytes # (auto) 0.2 uL; Monocytes % (auto) 1.3 % (0.0-12.0); Neutrophils # (auto) 12.4 uL; Neutrophils % (auto) 95.7 % (37.0-80.0); Platelet Count (auto) 263 10^3/uL (140-450); Red Blood Cells 4.93 10^6/uL (4.0-5.20); Red Cell Distribution Width 15.9 % (11.8-14.3)
[2019-03-30 08:00] VITALS: BP 110/69
[2019-03-30 08:05] LABS: BUN/Creatinine Ratio 11.2; Calcium 8.6 mg/dL (8.5-10.1); Potassium 3.7 mmol/L (3.5-5.1)
[2019-03-30 09:24] VITALS: BP 110/69
[2019-03-30] MEDS ORDERED: AZITHROMYCIN 500MG/ 250ML 250 ML IV SCH (10:00)
[2019-03-30 14:30] VITALS: BP 114/65
[2019-03-30 16:35] VITALS: BP 118/75
[2019-03-30 20:01] VITALS: BP 118/75
== END 2019-03-30 19:35 | disposition left against medical advice (07) | DRG 141 ==
LOC: EDBD 21:30 → ER 21:30 → EDUNIT# 21:30 → TELE 21:31 → TELE-WESTW 03-30 04:24
PROVIDERS: ADMIT Nurse Practitioner Family; ATTEND Internal Medicine
DX: J45.902 Unspecified asthma with status asthmaticus (principal); E11.9 Type 2 diabetes mellitus without complications; F17.210 Nicotine dependence, cigarettes, uncomplicated; Z83.3 Family history of diabetes mellitus; Z82.49 Family history of ischemic heart disease and other diseases of the circulatory system; Z85.41 Personal history of malignant neoplasm of cervix uteri
CPT/HCPCS: 36415; 71045; 80048; 80053; 84702; 85025; 85610; 85730; 87070; 87077; 87081; 87186; 87205; 94640; 94644; 96361; 96365; 96372; 96375; 99291; G0378

== ENCOUNTER 2019-08-25 07:45 | Inpatient (IN) | payer MEDICAID ==
[~2019-08-25] VITALS: Ht 170.2 cm; Wt 93.9 kg
[2019-08-25] MEDS ORDERED: IPRATROPIUM BROM 0.5 MG/2.5ML INH SOL NEB ONE (08:15)
[2019-08-25] MEDS ORDERED: ALBUTEROL SULF 2.5 MG/0.5ML(0.5%) NEB SOLN NEB ONE (08:15)
[2019-08-25] MEDS ORDERED: methylPREDNISolone SOD SUCC 125 MG/2 ML VL IV ONE (08:15)
[2019-08-25 08:56] LABS: Basophils # (auto) 0 uL; Basophils % (auto) 0.3 % (0.0-2.0); Eosinophils # (auto) 0.2 uL; Eosinophils % (auto) 1.2 % (0.0-7.0); Hemoglobin 16.6 g/dL (12.2-16.2); Lymphocytes # (auto) 0.6 uL; Lymphocytes % (auto) 3.9 % (10.0-50.0); Mean Corpuscular Hemoglobin 29.5 pg (28.0-32.0); Mean Corpuscular Volume 86.8 fL (80.0-100.0); Monocytes # (auto) 0.7 uL; Monocytes % (auto) 5.1 % (0.0-12.0); Neutrophils # (auto) 12.6 uL; Neutrophils % (auto) 89.5 % (37.0-80.0); Platelet Count (auto) 314 10^3/uL (140-450); Red Blood Cells 5.64 10^6/uL (4.0-5.20); Red Cell Distribution Width 14.2 % (11.8-14.3); White Blood Cell 14.1 10^3/uL (4.4-10.8)
[2019-08-25 09:14] LABS: Albumin 3.6 g/dL (3.4-5.0); Calcium 8.8 mg/dL (8.5-10.1); Potassium 4.3 mmol/L (3.5-5.1)
[2019-08-25 09:15] LABS: BUN/Creatinine Ratio 21.3; Bilirubin, Total 0.5 mg/dL (0.2-1.0); Total Protein 7.9 g/dL (6.4-8.2)
[2019-08-25] MEDS ORDERED: cefTRIAXone 1GM/50ML D5W 50 ML IV ONE (13:00)
[2019-08-25 15:09] VITALS: BP 98/59
[2019-08-25] MEDS ORDERED: ONDANSETRON HCL 4 MG/2 ML VIAL IV PRN (16:00)
[2019-08-25] MEDS ORDERED: MORPHINE SULF INJ 2 MG/ML SYRINGE 1ML IV PRN (16:00)
[2019-08-25] MEDS ORDERED: HYDROcodone-ACET 5/325MG TAB PO PRN (16:00)
[2019-08-25] MEDS ORDERED: ACETAMINOPHEN 500 MG TAB PO PRN (16:00)
[2019-08-25 16:50] LABS: Amylase 45 U/L (25-115); Lipase 73 U/L (73-393)
[2019-08-25] MEDS ORDERED: IPRATROPIUM BROM 0.5 MG/2.5ML INH SOL NEB SCH (18:00)
[2019-08-25] MEDS ORDERED: ALBUTEROL SULF 2.5 MG/0.5ML(0.5%) NEB SOLN NEB SCH (18:00)
[2019-08-26] MEDS ORDERED: cefTRIAXone 1GM/50ML D5W 50 ML IV SCH (09:00)
[2019-08-26] MEDS ORDERED: FAMOTIDINE 20 MG TAB PO SCH (10:00)
[2019-08-26] MEDS ORDERED: LEVOFLOXACIN 500MG 100 ML IV SCH (10:00)
[2019-08-26] MEDS ORDERED: AZITHROMYCIN 500MG/ 250ML 250 ML IV SCH (10:00)
== END 2019-08-25 17:47 | disposition left against medical advice (07) | DRG 720 ==
LOC: EDBD 07:45 → ER 07:53 → OVERFLOW 07:54
PROVIDERS: ADMIT Nurse Practitioner Acute Care; ATTEND Nurse Practitioner Acute Care
DX: A41.9 Sepsis, unspecified organism (principal); K85.90 Acute pancreatitis without necrosis or infection, unspecified; J18.9 Pneumonia, unspecified organism; J45.901 Unspecified asthma with (acute) exacerbation; Z53.29 Procedure and treatment not carried out because of patient's decision for other reasons; D72.829 Elevated white blood cell count, unspecified; E66.9 Obesity, unspecified; F17.210 Nicotine dependence, cigarettes, uncomplicated; Z82.49 Family history of ischemic heart disease and other diseases of the circulatory system; Z82.5 Family history of asthma and other chronic lower respiratory diseases; Z83.3 Family history of diabetes mellitus; Z80.49 Family history of malignant neoplasm of other genital organs; Z59.0 Homelessness; Z90.49 Acquired absence of other specified parts of digestive tract
CPT/HCPCS: 36415; 71045; 74176; 80053; 82150; 83690; 85025; 94640; G0378; J0696

== ENCOUNTER 2021-09-05 10:50 | Emergency (ER) | payer MEDICAID ==
[~2021-09-05] VITALS: Ht 170.2 cm; Wt 90.7 kg
[2021-09-05 11:02] VITALS: BP 125/87
== END 2021-09-05 12:57 | disposition left against medical advice (07) ==
LOC: ER 10:50
DX: L03.115 Cellulitis of right lower limb (principal); J45.901 Unspecified asthma with (acute) exacerbation; F12.10 Cannabis abuse, uncomplicated; F17.210 Nicotine dependence, cigarettes, uncomplicated; F15.10 Other stimulant abuse, uncomplicated; Z90.49 Acquired absence of other specified parts of digestive tract; Z53.29 Procedure and treatment not carried out because of patient's decision for other reasons

== ENCOUNTER 2023-07-21 09:20 | Emergency (ER) | payer MEDICAID ==
[~2023-07-21] VITALS: Ht 172.7 cm; Wt 97.7 kg
[2023-07-21] MEDS ORDERED: ALBUTEROL SULF 2.5 MG/0.5ML(0.5%) NEB SOLN HHN ONE (09:30)
[2023-07-21] MEDS ORDERED: methylPREDNISolone SOD SUCC 125 MG/2 ML VL IV ONE (09:30)
[2023-07-21] MEDS ORDERED: IPRATROPIUM BROM 0.5 MG/2.5ML INH SOL HHN ONE (09:30)
[2023-07-21] MEDS ORDERED: ALBUTEROL MEDNEB 2.5 mg/3ml NEB ONE (09:37)
[2023-07-21 09:52] LABS: Basophils # (auto) 0.1 10 ^3/uL (0-0.2); Basophils % (auto) 0.4 % (0.0-2.0); Eosinophils # (auto) 0.6 10 ^3/uL (0-0.8); Eosinophils % (auto) 4.8 % (0.0-7.0); Hematocrit 42.1 % (36.0-46.0); Hemoglobin 14.1 g/dL (12.2-16.2); Lymphocytes % (auto) 15.3 % (10.0-50.0); Mean Corpuscular Hemoglobin 29.2 pg (28.0-32.0); Mean Corpuscular Hgb Conc. 33.6 g/dL (32.0-36.0); Mean Corpuscular Volume 87.1 fL (80.0-100.0); Monocytes # (auto) 1.1 10 ^3/uL (0-1.3); Monocytes % (auto) 8.6 % (0.0-12.0); Neutrophils # (auto) 9.5 10 ^3/uL (1.6-8.6); Neutrophils % (auto) 70.9 % (37.0-80.0); Red Blood Cells 4.83 10^6/uL (4.0-5.20); Red Cell Distribution Width 14.5 % (11.8-14.3); White Blood Cell 13.3 10^3/uL (4.4-10.8)
[2023-07-21 10:10] LABS: Alanine Aminotransferase 29 U/L (7-40); Albumin 4.1 g/dL (3.2-4.8); Alkaline Phosphatase 95 U/L (46-116); Anion Gap 7 (5-15); Aspartate Aminotransferase 29 U/L (13-40); BUN/Creatinine Ratio 8.3 (10.0-20.0); Blood Urea Nitrogen 6 mg/dL (9-23); Calcium 8.8 mg/dL (8.5-10.1); Carbon Dioxide 23 mmol/L (20-30); Chloride 106 mmol/L (98-107); Glucose 105 mg/dL (74-106); Potassium 3.6 mmol/L (3.5-5.1); Sodium 136 mmol/L (136-145)
[2023-07-21 10:11] LABS: Bilirubin, Total 0.4 mg/dL (0.2-1.0); Total Protein 7.1 g/dL (5.7-8.2)
[2023-07-21] MEDS ORDERED: ALBUAER3 IN (11:22)
[2023-07-21] MEDS ORDERED: METH4PAK PO (11:22)
[2023-07-21] MEDS ORDERED: AZIT1POW PO (11:22)
[2023-07-21 12:32] VITALS: BP 111/61; PULSE 97; RESP 20; TEMP 98.6; O2SAT 95
== END 2023-07-21 12:34 | disposition home or self-care (01) ==
LOC: EDBD 09:20 → ER 09:20
DX: J45.901 Unspecified asthma with (acute) exacerbation (principal); F17.210 Nicotine dependence, cigarettes, uncomplicated; F12.10 Cannabis abuse, uncomplicated; F15.10 Other stimulant abuse, uncomplicated; Z90.49 Acquired absence of other specified parts of digestive tract
CPT/HCPCS: 36415; 71045; 80053; 85025; 94644; 96374; 99285; J2930; J7644